=== PATIENT | female | born 2000 | race Hispanic/Latino ===

== ENCOUNTER 2020-10-01 11:15 | Emergency (ER) | payer BC, SELFPAY ==
[2020-10-01 11:24] VITALS: BP 110/61; PULSE 91; RESP 16; TEMP 36.1; O2SAT 100
--- NOTE | 2020-10-01 12:00 | ED.URI ---
HPI - URI/Sore Throat General Chief Complaint: Upper Respiratory Infection Stated Complaint: sore throat Time Seen by Provider: 10/01/20 11:35 Source: patient, RN notes reviewed and old records reviewed Mode of arrival: ambulatory Limitations: no limitations History of Present Illness HPI Narrative: 20 year old female who presents to [facility] with complaints of 2 day history of sore throat with pain increased with swallowing. Patient denies any known fevers, chills or sweats, states no sinus congestion or drainage, denies any cough or ear pain. Patient denies any shortness of breath or any wheezing, no tachypnea or accessory muscle use noted, SAO2 100% on room air. Patient states that her daughter has been ill also.Patient states that she has been using chloroseptic spray to her throat for the pain which she states is sharp and throbbing rates it a 10/10. MD elicited complaint: sore throat Onset (ago): day(s) (2) Consistency: progressively worsening Severity: severe Pain scale (0-10): 10 Able to tolerate fluids by mouth: Yes Exacerbating factors: swallowing Relieving factors: nothing Context: sick contacts (daughter) Treatments prior to arrival: other (chloroseptic throat spray) Related Data Allergies Allergy/AdvReac Type Severity Reaction Status Date / Time amoxicillin Allergy Unknown Rash Verified 10/01/20 11:48 Review of Systems Review of Systems: Narrative: CONSTITUTIONAL: Denies fever, chills, or sweats. EYES: Denies visual changes, redness, or discharge. ENT: Denies rhinorrhea, congestion, positive sore throat, no otalgia. CARDIOVASCULAR: Denies chest pain, palpitations, or edema. RESPIRATORY: Denies cough or dyspnea. GASTROINTESTINAL: Denies abdominal pain, nausea, vomiting, or diarrhea. GENITOURINARY: Denies dysuria or hematuria. SKIN: Denies rash or itching. MUSCULOSKELETAL: Denies back pain, joint pain, or myalgia. NEUROLOGIC: Denies headache, numbness, or weakness. PSYCHIATRIC: Denies anxiety or depression. All systems reviewed & are unremarkable except as noted in HPI and below PMFSH Past Medical History Medical History (Updated 10/01/20 @ 15:07 by Sharon Qureshi NP) Anxiety and depression UTI (urinary tract infection) Surgical History Surgical History (Updated 10/01/20 @ 15:01 by Sharon Qureshi NP) S/P foot surgery, left calcaneal spur Family History Family History (Updated 10/01/20 @ 15:02 by Sharon Qureshi NP) Father Hypertension Elevated cholesterol Social History Social History (Updated 10/01/20 @ 15:05 by Sharon Qureshi NP) Smoking status: Never smoker Alcohol intake: never Substance use: former Substance use type: marijuana Last use: before with daughter Living arrangements: with family Gender identity (if verbalized by the patient): Female Comments At time of signature, agree with nursing past medical, surgical, social and family history. There is no relevant family history pertinent to the presenting complaint Exam Narrative: Exam Narrative: GENERAL: Well-appearing, well-nourished, and in no acute distress. HEAD: Normocephalic, atraumatic. EYES: PERRLA and EOMI. ENT: Nares clear, no rhinorrhea or epistaxis. Mucous membranes moist.TM's normal with good light reflex, throat red with tonsils enlarged and red with painful swallowing verbalized, no lesions or exudates noted, uvula swollen red but midline.no trismus noted NECK: Supple.lymphadenopathy CHEST: Clear to auscultation. No respiratory distress.SAO2 100% on room air HEART: Regular rate and rhythm. No murmur heard. Normal peripheral pulses. ABDOMEN: Soft, nontender, nondistended, normal active bowel sounds. EXTREMITIES: Normal range of motion. No edema. SKIN: Warm, dry, no rash. NEURO: No focal deficits. Alert and oriented x3. Course Vital Signs Vital signs: Vital Signs Temperature 36.1 C L 10/01/20 11:24 Pulse Rate 91 10/01/20 11:24 Respiratory Rate 16 10/01/20 11:24 B
== END 2020-10-01 12:32 | disposition home or self-care (01) ==
PROVIDERS: Emergency Provider Registered Nurse
DX: J02.0 Streptococcal pharyngitis (principal)
CPT/HCPCS: 87880; 99213; G0463

== ENCOUNTER → 2021-03-31 13:50 | Outpatient (CLI) | payer BC, SELFPAY ==
--- NOTE | ~2021-03-31 | US_ITS ---
EXAMINATION: US transvaginal DATE: 03/31/2021 14:16 INDICATION: Pelvic pain and abnormal uterine bleeding TECHNIQUE: Multiple transabdominal and endovaginal sonographic images of the pelvis were obtained. COMPARISON: None. FINDINGS: The uterus measures 7.3 x 2.6 x 3.8 cm. The endometrial complex measures 3 mm in thickness. Linear e chogenic and shadowing IUD in expected position within the endometrial canal. The right ovary measure s 2.0 x 1.3 x 1.4 cm. The left ovary measures 1.3 x 1.1 x 1.5 cm. Vascular flow identified within bot h ovaries on color Doppler. There is no free fluid in the pelvis. IMPRESSION: 1. IUD in expected position within the endometrial canal. Otherwise normal pelvic ultrasound. Reviewed, dictated and finalized at location A. [employer] COMMUNICATIONS [employer] SIGNALS IMPRESSION: 1. IUD in expected position within the endometrial canal. Otherwise normal pelv ic ultrasound.
== END ==
PROVIDERS: Visit Provider Nurse Practitioner
DX: N93.8 Other specified abnormal uterine and vaginal bleeding (principal); R10.2 Pelvic and perineal pain; Z97.5 Presence of (intrauterine) contraceptive device
CPT/HCPCS: 76830

== ENCOUNTER 2022-12-21 15:26 | Outpatient (CLI) | payer BC, SELFPAY ==
--- NOTE | ~2022-12-21 | US_ITS ---
Pelvic ultrasound. Clinical History: Excessive bleeding Technique: Realtime transabdominal and transvaginal scanning of the pelvis was performed. Color flow Doppler and Doppler spectral analysis were performed. Findings: The uterus is anteverted. The endometrial stripe has a thickness of 8 mm. Small amount of fluid present in the endometrial cavity.. The right ovary measures 2.7 x 1.3 x 1.9 cm. No significant right ovarian or adnexal mass is seen. The left ovary measures 2.0 x 1.2 x 1.9 cm. No significant left ovarian or adnexal mass is seen. There is no evidence of free fluid in the cul de sac. Impression: Small amount of fluid present in the endometrial cavity, nonspecific. No other significant findings. Reviewed, dictated and finalized at location . Impression: Small amount of fluid present in the endometrial cavity, nonspecific. No other significant findings.
== END 2022-12-21 15:27 ==
LOC: MICIMG 15:29
PROVIDERS: PCP Obstetrics & Gynecology Gynecology; Visit Provider Obstetrics & Gynecology Gynecology
DX: N92.0 Excessive and frequent menstruation with regular cycle (principal)
CPT/HCPCS: 76830

== ENCOUNTER 2023-01-21 01:22 | Emergency (ER) | payer BC, SELFPAY ==
--- NOTE | ~2023-01-21 | XR_ITS ---
Portable chest x-ray Comparison: None Clinical History: Palpitations Findings: Lungs are clear, without focal consolidation or pleural effusion. Cardiomediastinal silho uette is unremarkable. Bones and soft tissues are unremarkable. Impression: Clear lungs. Reviewed, dictated and finalized at location M. Impression: Clear lungs.
[2023-01-21 01:25] VITALS: BP 129/75; PULSE 90; RESP 20; TEMP 36.9; O2SAT 99
[2023-01-21] MEDS: LORazepam (*CRX) 0.5 MG TABLET PO (04:17)
[2023-01-21 04:24] VITALS: BP 128/48; PULSE 82; RESP 16; O2SAT 98
--- NOTE | 2023-01-21 04:26 | ED.GENADULT ---
HPI - General Adult General Chief complaint: Shortness of Breath/Dyspnea Stated complaint: shortnes of breath Time Seen by Provider: 01/21/23 03:13 History of Present Illness HPI narrative: This is a 22-year-old female presenting ED with chief complaint of palpitations X5 months. Patient noticed at 12:00 p.m. today she started to have palpitations and sensation of her heart racing. Is associated with anxiety. It then resolved but while she was trying to sleep they resumed. Patient says this is what her typical anxiety feels like although this is worse than usual. Patient notes that she has panic disorder and anxiety. She says this is her typical panic attack. At this time she is asymptomatic. Related Data Allergies Allergy/AdvReac Type Severity Reaction Status Date / Time amoxicillin Allergy Unknown Rash Verified 10/01/20 11:48 [facility] Past Medical History Medical History Anxiety and depression UTI (urinary tract infection) Surgical History Surgical History S/P foot surgery, left calcaneal spur Family History Family History Father Hypertension Elevated cholesterol Social History Social History Smoking status: Never smoker Alcohol intake: never Substance use: former Substance use type: marijuana Last use: before with daughter Living arrangements: with family Gender identity (if verbalized by the patient): Female Exam Narrative: APPEARANCE: No apparent distress. Head: atraumatic. EYES: EOMI, NOSE: Atraumatic NECK: Trachea midline RESPIRATORY: No increased rate of breathing Clear to auscultation CARDIOVASCULAR: RRR, no peripheral edema ABDOMINAL: Non-distended MUSCULOSKELETAl: No obvious deformities NEURO: Alert. Moving 4/4 extremities SKIN:: Warm, dry. Normal color PSYCHIATRIC: Normal affect Course Vital Signs Vital signs: Vital Signs Temperature 98.5 F 01/21/23 01:25 Pulse Rate 90 01/21/23 01:25 Respiratory Rate 20 01/21/23 01:25 Blood Pressure 129/75 01/21/23 01:25 Pulse Oximetry 99 01/21/23 01:25 Oxygen Delivery Room Air 01/21/23 01:25 Temperature 98.5 F 01/21/23 01:25 Pulse Rate 82 01/21/23 04:24 Respiratory Rate 16 01/21/23 04:24 Blood Pressure 128/48 L 01/21/23 04:24 Pulse Oximetry 98 01/21/23 04:24 Oxygen Delivery Room Air 01/21/23 01:25 Medical Decision Making MDM Narrative Medical decision making narrative: -Course: 22-year-old female presenting with palpitations. Patient states this is her typical anxiety attack. Chest x-ray and EKG were unremarkable. Patient was given p.o. Ativan and discharged. given return precautions. 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 Independent EKG interpretation: Rhythm [sinus], Rate [72], [place] -[normal], DE -[normal], QRS [narrow], QTC [normal], T waves -[negative for concerning inversions], ST Segments - [Negative for concerning elevations] Final interpretations: [Normal Sinus Rhythm] -Dx tests considered but not ordered: PE studies-PERC negative -Interventions: 0.5 p.o. Ativan -Shared decision making / Disposition: discharge Vital Signs Vital Signs: Vital Signs Temperature 98.5 F 01/21/23 01:25 Pulse Rate 90 01/21/23 01:25 Respiratory Rate 20 01/21/23 01:25 Blood Pressure 129/75 01/21/23 01:25 Pulse Oximetry 99 01/21/23 01:25 Oxygen Delivery Room Air 01/21/23 01:25 Temperature 98.5 F 01/21/23 01:25 Pulse Rate 82 01/21/23 04:24 Respiratory Rate 16
[2023-01-21 04:40] VITALS: BP 126/56; PULSE 84; RESP 15; O2SAT 100
== END 2023-01-21 04:40 | disposition home or self-care (01) ==
PROVIDERS: Emergency Provider Emergency Medicine; PCP Physician Assistant
DX: F41.9 Anxiety disorder, unspecified (principal)
CPT/HCPCS: 71045; 93005; 99283; A9270; L0140

== ENCOUNTER → 2023-06-23 15:47 | Outpatient (CLI) | payer BC, SELFPAY ==
--- NOTE | ~2023-06-23 | US_ITS ---
EXAMINATION: US OB transvaginal DATE: 06/23/2023 16:17 INDICATION: Spotting in first trimester. TECHNIQUE: Real-time transvaginal pelvic ultrasound was performed. COMPARISON: None. FINDINGS: The uterus measures 9.6 x 4.5 x 5.6 cm. There is an intrauterine gestational sac. A yolk sac is ident ified. The crown rump length measures 4 mm, which correlates with an estimated gestational age of 6 weeks and 1 day(s) (+/-) 4 day(s). heart motion is identified measuring 115 beats per min brittney (bpm) by M-mode Doppler. The right ovary measures 1.4 x 1.4 x 2.3 cm. The left ovary is not visua lized. There is no free fluid in the pelvis. IMPRESSION: 1. Single living intrauterine gestation with estimated date of delivery of 02/15/2024. Reviewed, dictated and finalized at location E. [employer]
== END ==
PROVIDERS: PCP Obstetrics & Gynecology Gynecology; Visit Provider Obstetrics & Gynecology Gynecology
DX: O26.851 Spotting complicating pregnancy, first trimester (principal); Z3A.00 Weeks of gestation of pregnancy not specified
CPT/HCPCS: 76801; 76817

== ENCOUNTER → 2023-06-30 14:51 | Outpatient (CLI) | payer BC, SELFPAY ==
--- NOTE | ~2023-06-30 | US_ITS ---
EXAMINATION: US OB limited DATE: 06/30/2023 15:14 INDICATION: Spotting during first trimester . Confirm viability. TECHNIQUE: Real-time pelvic ultrasound utilizing transabdominal probe was performed. The kika torres radiologist was not present for the study. COMPARISON: 06/23/2023 FINDINGS: The uterus measures 8.7 x 5.1 x 6.0 cm. There is an intrauterine gestational sac. A yolk sac and fet al pole are identified. The crown rump length measures 1.0 cm, which is concordant with previously es timated gestational age of 7 weeks and 1 days. heart motion is identified measuring 146 beats p er minute (bpm) by M-mode Doppler. The ovaries are not visualized. There is no free fluid in the pelv is. IMPRESSION: 1. Single living fetus with heart rate of 146 bpm. Reviewed, dictated and finalized at location A. 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
== END ==
PROVIDERS: PCP Advanced Practice Midwife; Visit Provider Advanced Practice Midwife
DX: O26.851 Spotting complicating pregnancy, first trimester (principal); O36.80X0 Pregnancy with inconclusive fetal viability, not applicable or unspecified
CPT/HCPCS: 76815

== ENCOUNTER 2023-12-10 05:38 | Observation (INO) | payer BC, SELFPAY ==
[2023-12-10] VITALS (7 sets, daily range): BP systolic 115–129; BP diastolic 60–74; PULSE 79–92; TEMP 36.8; BMI 46.6
[2023-12-10 06:28] LABS: Appearance Urine Clear (Clear); Bilirubin Urine Negative (Negative); Blood Urine Negative (Negative); Color Urine Yellow (Yellow); Glucose Urine UA Negative (Negative); Ketones Urine Negative (Negative); Leukocyte Esterase Ur Negative LEU/UL (Negative); Nitrate Urine Negative (Negative); Protein Urine Negative (Negative); Specific Grav Ur 1.015 (1.001-1.035); Urobilinogen Urine 0.2 mg/dL (<2.0); pH Urine 5.5 (5.0-9.0)
[2023-12-10 06:44] LABS: Basophils Percent Auto 0.3 % (0.2-1.2); Eosinophils Absolute Auto 0.4 K/mm3 (0-0.3); Eosinophils Percent Auto 3.6 % (0-4.4); Hematocrit 34.5 % (37.0-47.0); Hemoglobin 11.2 g/dL (12.0-15.0); Immature Granulocyte Percent A 0.9 % (0-0.5); Lymphocytes Absolute Auto 1.73 K/mm3 (0.9-3.2); Lymphocytes Percent Auto 15.8 % (18.3-44.2); Mean Corpuscular HGB Conc 32.5 g/dl (32-36); Mean Corpuscular Hemoglobin 29.7 pg (26-34); Mean Corpuscular Volume 91.5 fl (80-100); Mean Platelet Volume 9.1 fl (7.4-10.4); Monocytes Absolute Auto 0.7 K/mm3 (0.1-0.6); Monocytes Percent Auto 6.1 % (2.6-8.5); Neutrophils Percent Auto 73.3 % (45.5-73.1); Platelet Count Result 245 k/mm3 (150-375); Red Blood Count 3.77 M/mm3 (4.2-5.4); Red Cell Distribution Width 13.3 % (11.5-14.5); White Blood Count 10.9 K/mm3 (4.5-10.0)
[2023-12-10 06:44] LABS: Add Urine Microscopic? NO
--- NOTE | 2023-12-10 06:44 | OBADM ---
This patient, Jade Cardenas, admitted to the OB room [facility] for observation. Patient/family oriented to hospital policies and general routines including ID bracelet, bed and alarms, visiting hours, pain management, procedures, bathroom and other care routines, personal items, smoking policy, room service/diet, and visiting hours. Patient/Family are encouraged to report perceived risks to care and to ask questions if they do not understand what they are told or what they should do.
[2023-12-10 06:58] LABS: Alanine Aminotransferase 13 U/L (6-35); Albumin Level 3.5 g/dL (3.5-5.1); Alkaline Phosphatase 96 U/L (38-126); Anion Gap 9 mmol/L (4-12); Aspartate Amino Transferase 18 U/L (14-36); Bilirubin,Total 0.3 mg/dL (0.2-1.3); Blood Urea Nitrogen 6 mg/dL (7-17); Calcium 8.7 mg/dL (8.4-10.2); Carbon Dioxide 20 mmol/L (22-30); Chloride 103 mmol/L (98-107); Estimated CRCL calculation 238 ml/min; Estimated Glomerular Filt Rate > 60; Glucose 116 mg/dL (65-110); Potassium 3.5 mmol/L (3.4-5.0); Sodium 132 mmol/L (137-145); Uric Acid 2.4 mg/dL (2.5-7.5)
[2023-12-10 07:00] LABS: Creatinine Urine 72.9 mg/dL; Total Protein Urine Random 11 mg/dL; Ur Ttl Prot Creatinine Ratio 0.15 mg/mg (0-0.20)
--- NOTE | 2023-12-13 12:34 | P.PNOB_ITS ---
OB - Triage/Final Diagnosis Visit Information Comments/Additional reasons for admission: I have assessed the risk for this patient, Jade Cardenas, and determined that she would benefit from observation care. Evaluation Laboratory results: Laboratory Tests 12/10/23 12/10/23 06:05 06:30 WBC 10.9 H RBC 3.77 L Hgb 11.2 L Hct 34.5 L MCV 91.5 MCH 29.7 MCHC 32.5 RDW 13.3 Plt Count 245 MPV 9.1 Immature Gran % (Auto) 0.9 H Neut % (Auto) 73.3 H Lymph % (Auto) 15.8 L [place] % (Auto) 6.1 Eos % (Auto) 3.6 Baso % (Auto) 0.3 Lymph # (Auto) 1.73 [place] # (Auto) 0.7 H Eos # (Auto) 0.4 H Baso # (Auto) 0.0 Abs Immat Gran (auto) 0.10 H Absolute Neuts (auto) 8.0 H Absolute Nucleated RBC 0.000 Nucleated RBC % 0.0 Sodium 132 L Potassium 3.5 Chloride 103 Carbon Dioxide 20 L Anion Gap 9 BUN 6 L Creatinine 0.40 L Estim Creat Clear Calc 238 Estimated GFR > 60 Glucose 116 H Uric Acid 2.4 L Calcium 8.7 Total Bilirubin 0.3 AST 18 ALT 13 Alkaline Phosphatase 96 Total Protein 6.0 L Albumin 3.5 Urine Color Yellow Urine Appearance Clear Urine pH 5.5 Ur Specific [place] 1.015 Urine Protein Negative Urine Glucose (UA) Negative Urine Ketones Negative Ur Blood (Man) Negative Urine Nitrate Negative Urine Bilirubin Negative Urine Urobilinogen 0.2 Leukocyte Esterase Rfl Negative U Random Total Protein 11 Urine Creatinine 72.9 Protein/Creat Ratio 2 0.15 Final Diagnosis (1) False labor: Code(s): O47.9 - False labor, unspecified Status: Acute
== END 2023-12-10 07:42 | disposition home or self-care (01) ==
PROVIDERS: Admitting Provider Obstetrics & Gynecology Gynecology; PCP Advanced Practice Midwife; Visit Provider Obstetrics & Gynecology
DX: O47.03 False labor before 37 completed weeks of gestation, third trimester (principal); Z3A.30 30 weeks gestation of pregnancy
CPT/HCPCS: 36415; 80053; 81003; 82570; 84156; 84550; 85025; G0378; G0379

== ENCOUNTER 2024-01-26 18:38 | Outpatient (NON) | payer BC, SELFPAY ==
[2024-01-26 19:11] VITALS: BMI 49.5
[2024-01-26 20:19] LABS: Collection Time Urine 24 HOURS
[2024-01-26 20:23] LABS: Total Volume 24 Hour Urine 1450 ml
[2024-01-26 20:51] LABS: Creatinine Clearance Urine 133.4 ml/min (75-125); Creatinine Urine 89.3 mg/dL; Patient Weight 297 Lbs
[2024-01-26 20:58] LABS: Total Protein Urine 24 Hr 72 mg/24hr (28-141); Total Protein Urine Random < 5 mg/dL
== END 2024-01-26 18:39 | disposition home or self-care (01) ==
LOC: ANHLAB 18:57
PROVIDERS: PCP Advanced Practice Midwife; Visit Provider Advanced Practice Midwife
DX: R73.9 Hyperglycemia, unspecified (principal)
CPT/HCPCS: 81050; 82575; 84156

== ENCOUNTER 2024-02-07 08:31 | Outpatient (RCR) | payer BC, SELFPAY ==
[2023-12-21 14:55] VITALS: BP 108/61; PULSE 99
[2023-12-26 13:40] VITALS: BP 108/61; PULSE 107
[2023-12-28 18:18] VITALS: BP 117/59; PULSE 90
[2024-01-01 14:30] VITALS: BP 109/62; PULSE 90
[2024-01-04 17:38] VITALS: BP 114/69; PULSE 94
[2024-01-08 13:48] VITALS: BP 125/69; PULSE 97
[2024-01-11 17:45] VITALS: BP 122/55; PULSE 95
[2024-01-15 13:52] VITALS: BP 109/64; PULSE 98
[2024-01-18 17:04] VITALS: BP 124/56; PULSE 89
[2024-01-21 14:31] VITALS: BP 104/59; PULSE 85
[2024-01-25 18:01] LABS: Basophils Percent Auto 0.4 % (0.2-1.2); Eosinophils Absolute Auto 0.4 K/mm3 (0-0.3); Eosinophils Percent Auto 3.3 % (0-4.4); Hematocrit 33.9 % (37.0-47.0); Hemoglobin 10.6 g/dL (12.0-15.0); Immature Granulocyte Absolute 0.13 K/mm3 (0.00-0.031); Immature Granulocyte Percent A 1.2 % (0-0.5); Lymphocytes Absolute Auto 1.97 K/mm3 (0.9-3.2); Lymphocytes Percent Auto 17.9 % (18.3-44.2); Mean Corpuscular HGB Conc 31.3 g/dl (32-36); Mean Corpuscular Volume 92.9 fl (80-100); Mean Platelet Volume 9.5 fl (7.4-10.4); Monocytes Absolute Auto 0.9 K/mm3 (0.1-0.6); Monocytes Percent Auto 8.5 % (2.6-8.5); Neutrophils Absolute Auto 7.6 K/mm3 (1.3-6.7); Neutrophils Percent Auto 68.7 % (45.5-73.1); Platelet Count Result 250 k/mm3 (150-375); Red Blood Count 3.65 M/mm3 (4.2-5.4); Red Cell Distribution Width 13.9 % (11.5-14.5)
[2024-01-25 18:05] LABS: Add Urine Microscopic? NO; Appearance Urine Clear (Clear); Bilirubin Urine Negative (Negative); Blood Urine Negative (Negative); Color Urine Yellow (Yellow); Glucose Urine UA Trace mg/dL (Negative); Ketones Urine Negative (Negative); Leukocyte Esterase Ur Negative LEU/UL (Negative); Nitrate Urine Negative (Negative); Protein Urine Negative (Negative); Specific Grav Ur 1.023 (1.001-1.035); Urobilinogen Urine 0.2 mg/dL (<2.0)
[2024-01-25 18:06] LABS: Alanine Aminotransferase 14 U/L (6-35); Albumin Level 3.2 g/dL (3.5-5.1); Alkaline Phosphatase 120 U/L (38-126); Anion Gap 6 mmol/L (4-12); Aspartate Amino Transferase 21 U/L (14-36); Bilirubin,Total 0.3 mg/dL (0.2-1.3); Blood Urea Nitrogen 9 mg/dL (7-17); Calcium 8.5 mg/dL (8.4-10.2); Carbon Dioxide 24 mmol/L (22-30); Chloride 102 mmol/L (98-107); Estimated Glomerular Filt Rate > 60; Glucose 103 mg/dL (65-110); Potassium 3.7 mmol/L (3.4-5.0); Sodium 132 mmol/L (137-145); Uric Acid 2.2 mg/dL (2.5-7.5)
[2024-01-25 18:10] VITALS: BP 112/56; PULSE 92
[2024-01-25 19:45] LABS: Creatinine Urine 95.2 mg/dL
[2024-01-25 19:57] LABS: Total Protein Urine Random < 5 mg/dL; Ur Ttl Prot Creatinine Ratio < 0.05 mg/mg (0-0.20)
[2024-02-02 18:26] VITALS: BP 112/56; PULSE 92
[2024-02-07 09:26] VITALS: BP 99/61; PULSE 91
== END 2024-03-20 23:59 | disposition home or self-care (01) ==
LOC: ANHOBOP 08:31
PROVIDERS: PCP Advanced Practice Midwife; Visit Provider Obstetrics & Gynecology Gynecology
DX: O36.8190 Decreased fetal movements, unspecified trimester, not applicable or unspecified (principal); O24.419 Gestational diabetes mellitus in pregnancy, unspecified control
CPT/HCPCS: 36415; 59025; 80053; 81003; 82570; 84156; 84550; 85025

== ENCOUNTER 2024-02-14 05:02 | Inpatient (IN) | payer BC, SELFPAY ==
[2024-02-14] VITALS (134 sets, daily range): BP systolic 89–166; BP diastolic 39–121; PULSE 70–150; RESP 18; TEMP 36.6–37.2; O2SAT 84–100; BMI 47.4
--- NOTE | 2024-02-14 05:30 | PC.NURSE ---
Clarification of written vancomycin on IOL orders. Vancomycin 1gm q12hrs ordered per GBS protocol orders.
[2024-02-14 05:48] LABS: Glucose Point of Care 162 mg/dl (65-105)
[2024-02-14 05:55] LABS: Basophils Percent Auto 0.3 % (0.2-1.2); Eosinophils Absolute Auto 0.4 K/mm3 (0-0.3); Eosinophils Percent Auto 3.2 % (0-4.4); Hematocrit 33.5 % (37.0-47.0); Hemoglobin 11.1 g/dL (12.0-15.0); Immature Granulocyte Percent A 0.8 % (0-0.5); Mean Corpuscular HGB Conc 33.1 g/dl (32-36); Mean Corpuscular Volume 90.5 fl (80-100); Mean Platelet Volume 9.8 fl (7.4-10.4); Monocytes Absolute Auto 0.8 K/mm3 (0.1-0.6); Monocytes Percent Auto 6.4 % (2.6-8.5); Neutrophils Absolute Auto 8.7 K/mm3 (1.3-6.7); Neutrophils Percent Auto 71.3 % (45.5-73.1); Platelet Count Result 260 k/mm3 (150-375); Red Cell Distribution Width 14.5 % (11.5-14.5); White Blood Count 12.2 K/mm3 (4.5-10.0)
[2024-02-14 06:21] LABS: Alanine Aminotransferase 17 U/L (6-35); Albumin Level 3.4 g/dL (3.5-5.1); Alkaline Phosphatase 151 U/L (38-126); Anion Gap 11 mmol/L (4-12); Aspartate Amino Transferase 26 U/L (14-36); Bilirubin,Total 0.4 mg/dL (0.2-1.3); Blood Urea Nitrogen 9 mg/dL (7-17); Calcium 8.6 mg/dL (8.4-10.2); Carbon Dioxide 18 mmol/L (22-30); Chloride 104 mmol/L (98-107); Estimated CRCL calculation 198 ml/min; Estimated Glomerular Filt Rate > 60; Glucose 166 mg/dL (65-110); Potassium 3.4 mmol/L (3.4-5.0); Sodium 133 mmol/L (137-145)
--- NOTE | 2024-02-14 06:32 | LDADM ---
This patient, Jade Cardenas, was admitted to Labor/Delivery/Recovery 105 on 02/14/24 at 05:02. Plans for labor, pain management and were discussed with patient. Patient/family oriented to hospital policies and general routines including ID bracelet, bed and alarms, visiting hours, pain management, procedures, bathroom and other care routines, personal items, smoking policy, room service/diet and guest tray routines, infant security routines, and visiting hours. Patient/Family are encouraged to report perceived risks to care and to ask questions if they do not understand what they are told or what they should do. See OBIX for further documentation.
[2024-02-14] MEDS: LACTATED RINGERS 1,000 ML 125 ML IV CONT ×2 (06:50→09:24)
[2024-02-14] MEDS: OXYTOCIN 30 UNITS/NS 500 ML 30 UNITS/500 ML BAG IV CONT (06:50)
[2024-02-14 06:56] LABS: HIV 1/2 Ab P24 Ag Result Negative (Negative)
[2024-02-14 06:57] LABS: Glucose Point of Care 164 mg/dl (65-105)
--- NOTE | 2024-02-14 07:36 | WPDOBADMIT ---
Obstetrics - Admit Note Admission Note: record reviewed. No pertinent additions to the history and/or any subsequent changes in the physical findings that are not consistent with the expected course of the were found. Additions to the history and/or subsequent changes in the physical findings follow. None.
--- NOTE | 2024-02-14 07:36 | PM.OBPNLAB ---
Pain Control Date/time seen: 02/14/24 07:25 Pain control: tolerating well Comments: Not feeling contractions at this time. Contractions Monitor mode: External Contraction pattern: Absent Status status: Category l Comments: Baseline 160. Assessment and Plan Assessment: induction ongoing Comments: CNM to bedside. Discussed lab results and am glucose. Pt states she forgot her PM insulin. Per RN, pt ate waffles, biscuits for breakfast at home. Discussed plan of care. Plan SVE and ROM if favorable. Discussed possibility of needing insulin drip for glucose control. Again reviewed risks to fetus for uncontrolled blood sugars including weight gain, shoulder dystocia, poor glycemic control and possibility of respiratory distress and possibility of requiring IV fluid and stay in Level 2 nursery. All questions answered. Desires to proceed with IOL.
--- NOTE | 2024-02-14 07:41 | PM.IMHP ---
H&P: HPI History of Present Illness Date/Time: 02/14/24 07:41 Chief Complaint: Induction of labor Narrative: 23 y.o at 39 weeks 6 days gestation IOL GDMA2 (hx non-compliance) Anxiety PCOS Pre-Diabetes Exercise induced asthma Nicotine use in gHTN COVID in GBS+ Review of Systems Review of Systems: All systems reviewed & are unremarkable except as noted in HPI and below PMFSH Past Medical History Medical History Anxiety and depression UTI (urinary tract infection) Surgical History Surgical History S/P foot surgery, left calcaneal spur Family History Family History Father Hypertension Elevated cholesterol Social History Social History Smoking status: Former smoker Alcohol intake: never Substance use: never Substance use type: marijuana Last use: before with daughter Do You Feel Safe in your Home?: Yes Lack of Transportation: No Lack of Food: Never True Current Housing: I Have Housing Concerned About Future Housing: No Difficulty Paying Gas/Electric Bills: No Difficulty Paying for Meds: No Currently Unemployed: No Education: High School Diploma/GED Difficulty w/ Childcare or Family Care: No Living arrangements: with family Gender identity (if verbalized by the patient): Female Spiritual care concerns: No Meds Home Medications and Allergies Home Medications Medication Instructions Recorded Confirmed Type ergocalciferol (vitamin D2) 1,250 50,000 unit PO WEEKLY 12/21/23 02/14/24 History mcg (50,000 unit) capsule insulin NPH isoph U-100 human 100 20 unit subcut HS 12/21/23 01/21/24 History unit/mL (3 mL) subcutaneous pen (Novolin N FlexPen) vit no.95-ferrous 1 tablet PO DAILY 12/21/23 01/21/24 History fumarate 28 mg-folic acid 800 mcg tablet () Allergies Allergy/AdvReac Type Severity Reaction Status Date / Time amoxicillin Allergy Unknown Rash Verified 01/21/24 13:33 Vital Signs Vital Signs - 24 hr 02/14/24 05:30 02/14/24 06:30 02/14/24 06:45 Pulse Rate 101 H 95 94 Blood Pressure 119/60 125/62 115/57 L Oxygen Delivery 02/14/24 07:00 02/14/24 07:30 02/14/24 06:31 Pulse Rate 92 91 Blood Pressure 108/65 96/75 L Oxygen Delivery Room Air Exam Const: General: comfortable and no acute distress HENMT: Mouth: Yes moist mucous membranes Eyes: General: appearance normal, both eyes and all related structures Neck: Neck: supple Resp: Effort & Inspection: normal respiratory effort Cardio: Rate: regular rate GI: GI Palp: Yes Soft to palpation : General: Yes bladder normal to palpation Urinary Catheter: Urinary Catheter: patent and draining Skin: General skin exam: normal color Neuro: General: gait normal Speech: normal speech Sensory Exam: normal sensation Extrem: General: normal to inspection Psych: Mental Status: mental status grossly normal H&P: Results Labs Labs: Short CBC 02/14/24 Range/Units 05:49 WBC 12.2 H (4.5-10.0) K/mm3 Hgb 11.1 L (12.0-15.0) g/dL Hct 33.5 L (37.0-47.0) % Plt Count 260 (150-375) k/mm3 BMP 02/14/24 05:49 Sodium 133 L Potassium 3.4 Chloride 104 Carbon Dioxide 18 L BUN 9 Creatinine 0.50 L Glucose 166 H Calcium 8.6 Liver Function 02/14/24 Range/Units 05:49 Total Bilirubin 0.4 (0.2-1.3) mg/dL AST 26 (14-36) U/L ALT 17 (6-35) U/L Alkaline Phosphatase 151 H (38-126) U/L Albumin 3.4 L (3.5-5.1) g/dL Assessment and Plan Assessment and plan (1) Encounter for induction of labor: Code(s): Z34.90 - Encounter for supervision of normal , unspecified, unspecified trimester Status: Acute (2) Gestational diabetes:
--- NOTE | 2024-02-14 08:03 | PM.OBPNLAB ---
Pain Control Date/time seen: 02/14/24 08:03 Pelvic Exam Dilation (cm): 4 Effacement (%): 50 station: -2 Amniotic membrane status: Intact Comments: head well applied. Contractions Monitor mode: External Contraction pattern: Irregular Status status: Category l Assessment and Plan Pitocin rate (mU/min): 1 Assessment: induction ongoing Comments: CNM to bedside. Discussed plan of care and option for amniotomy. Discussed risks, benefits, and expectations of breaking water. Patient is agreeable. Amniotomy performed and there was a small return of clear amniotic fluid. Patient tolerated procedure well. Blood sugar 144. Plan 4 units regular insulin and recheck one hour. If > 120, will start insulin drip.
[2024-02-14 08:11] LABS: Rapid Plasma Reagin Non-Reactive (NonReactive)
[2024-02-14] MEDS: ceFAZolin 2 GM/D5W 50 ML 2 GM/50 ML BAG IVPB (08:11)
[2024-02-14 08:19] LABS: Glucose Point of Care 144 mg/dl (65-105)
--- NOTE | 2024-02-14 08:19 | WPDANESEPP ---
Anes - Eval Pre Procedure Procedure: Labor epidural Date/Time: 02/14/24 08:19 Surgeon: Aung Preop Diagnosis: Pain during labot Pre Op Diagnosis: IOL Patient Data Age: 23 Gender: F Height: 1.65 m Weight: 129.3 kg Last Vital Signs Pulse 91 02/14/24 07:30 BP 96/75 L 02/14/24 07:30 O2 Del Method Room Air 02/14/24 06:31 Allergies Allergy/AdvReac Type Severity Reaction Status Date / Time amoxicillin Allergy Unknown Rash Verified 01/21/24 13:33 Home Medications Medication Instructions Recorded Confirmed Type ergocalciferol (vitamin D2) 1,250 50,000 unit PO WEEKLY 12/21/23 02/14/24 History mcg (50,000 unit) capsule insulin NPH isoph U-100 human 100 20 unit subcut HS 12/21/23 01/21/24 History unit/mL (3 mL) subcutaneous pen (Novolin N FlexPen) vit no.95-ferrous 1 tablet PO DAILY 12/21/23 01/21/24 History fumarate 28 mg-folic acid 800 mcg tablet () Laboratory Tests 02/14/24 02/14/24 02/14/24 05:44 05:48 05:49 WBC 12.2 H K/mm3 (4.5-10.0) RBC 3.70 L M/mm3 (4.2-5.4) Hgb 11.1 L g/dL (12.0-15.0) Hct 33.5 L % (37.0-47.0) MCV 90.5 fl (80-100) MCH 30.0 pg (26-34) MCHC 33.1 g/dl (32-36) RDW 14.5 % (11.5-14.5) Plt Count 260 k/mm3 (150-375) MPV 9.8 fl (7.4-10.4) Immature Gran % (Auto) 0.8 H % (0-0.5) Neut % (Auto) 71.3 % (45.5-73.1) Lymph % (Auto) 18.0 L % (18.3-44.2) [place] % (Auto) 6.4 % (2.6-8.5) Eos % (Auto) 3.2 % (0-4.4) Baso % (Auto) 0.3 % (0.2-1.2) Lymph # (Auto) 2.20 K/mm3 (0.9-3.2) [place] # (Auto) 0.8 H K/mm3 (0.1-0.6) Eos # (Auto) 0.4 H K/mm3 (0-0.3) Baso # (Auto) 0.0 K/mm3 (0.0-0.1) Abs Immat Gran (auto) 0.10 H K/mm3 (0.00-0.031) Absolute Neuts (auto) 8.7 H K/mm3 (1.3-6.7) Absolute Nucleated RBC 0.000 K/mm3 (0.0-0.012) Nucleated RBC % 0.0 % (0.0-0.2) Sodium 133 L mmol/L (137-145) Potassium 3.4 mmol/L (3.4-5.0) Chloride 104 mmol/L (98-107) Carbon Dioxide 18 L mmol/L (22-30) Anion Gap 11 mmol/L (4-12) BUN 9 mg/dL (7-17) Creatinine 0.50 L mg/dL (0.7-1.0) Estim Creat Clear Calc 198 ml/min Estimated GFR > 60 (59 - ) Glucose 166 H mg/dL (65-110) POC Capillary Glucose 162 H mg/dl (65-105) Calcium 8.6 mg/dL (8.4-10.2) Total Bilirubin 0.4 mg/dL (0.2-1.3) AST 26 U/L (14-36) ALT 17 U/L (6-35) Alkaline Phosphatase 151 H U/L (38-126) Total Protein 6.0 L g/dL (6.3-8.2) Albumin 3.4 L g/dL (3.5-5.1) RPR Non-reactive (NonReactive) HIV 1&2 Ab/P24 Ag 4thGn Negative (Negative) Blood Type O Positive Antibody Screen Negative 02/14/24 02/14/24 06:54 08:01 WBC RBC Hgb Hct MCV MCH MCHC RDW Plt Count MPV Immature Gran % (Auto) Neut % (Auto) Lymph % (Auto) [place] % (Auto) Eos % (Auto) Baso % (Auto) Lymph # (Auto) [place] # (Auto) Eos # (Auto) Baso # (Auto) Abs Immat Gran (auto) Absolute Neuts (auto) Absolute Nucleated RBC Nucleated RBC % Sodium Potassium Chloride Carbon Dioxide Anion Gap BUN Creatinine Estim Creat Clear Calc Estimated GFR Glucose POC Capillary Glucose 164 H mg/dl 144 H mg/dl (65-105) (65-105) Calcium Total Bilirubin AST ALT Alkaline Phosphatase Tot
[2024-02-14] MEDS: INSULIN HUMAN REGULAR (*BKC) 100 UNITS/ML SUB-Q (08:28)
[2024-02-14 09:31] LABS: Glucose Point of Care 98 mg/dl (65-105)
[2024-02-14 10:41] LABS: Glucose Point of Care 91 mg/dl (65-105)
[2024-02-14 11:40] LABS: Glucose Point of Care 76 mg/dl (65-105)
--- NOTE | 2024-02-14 13:15 | PM.OBPNLAB ---
Pain Control Date/time seen: 02/14/24 1125 Pelvic Exam Comments: Recent RN exam 5 cm. Contractions Monitor mode: Internal Assessment and Plan Assessment: active labor Plan: continuous present management Comments: MVUs adequate and tracing reassuring per RN. Pt making cervical change. Blood sugars WNL. Pitocin infusing. Ancef for GBS prophylaxis. Continue present management. Anticipate vaginal . Dr. Horan updated.
[2024-02-14 14:38] LABS: Glucose Point of Care 92 mg/dl (65-105)
--- NOTE | 2024-02-14 15:14 | PM.OBPRVD ---
OB - Vaginal Delivery Note Procedure Delivery date: 02/14/24 Events: Gestational Diabetes (GDMA2), Gestational Hypertension and Other (COVID infection in ) Induction method: Per Pitocin Protocol Delivery augmentation: Rupture of Membranes Delivery monitor: External FHT and Internal Uterine Route of delivery: Episiotomy description: None Laceration Description: Periurethral (superficial) Specimen: No Quantitative Blood Loss (ml): 75 Anesthesia type: Epidural Disposition: Floor Complications: No immediate complications Narrative: Jade arrived for induction of labor due to gestational diabetes. Her induction was began with Pitocin an amniotomy was performed. She made change to complete dilation. She did receive an epidural for analgesia. She pushed very well with 1 contraction and delivered the head over an intact perineum. Excellent restitution was observed and smooth delivery of the anterior and posterior shoulders followed by the remainder of the was achieved. The infant was placed on maternal abdomen dried and stimulated by the nursery staff. After 1 minute of life, the cord was doubly clamped and cut. Cord gases, cord blood, and cord segment were obtained. The placenta delivered spontaneously in the Schultze presentation. A superficial periurethral laceration was sustained no repair required. There was excellent uterine tone and hemostasis. All delivery counts correct. Mother and baby skin to skin in the delivery room. Baby Date of : 02/14/24 Time of : 15:01 Gestational Age by Date: 39 Infant gender: Male Weight (pounds): 0 (unavailable at the time of note) presentation: vertex position: Left Occiput Anterior Placenta delivery description: Spontaneous and Normal Configuration Cord Vessel Description: 3 Vessels and Delayed Cord Clamping score one minute: 8 score five minutes: 9
--- NOTE | 2024-02-14 15:20 | PM.OBDSVD ---
DS: Admitting Diagnosis Discharge Date 02/15/24 Admitting Diagnosis 23 y.o. at 39 weeks IOL GDMA2 GHTN COVID infection in Nicotine use in [place] Marijuana use in DS: Discharge Diagnosis Discharge Diagnosis (1) (normal spontaneous vaginal delivery): Code(s): O80 - Encounter for full-term uncomplicated delivery Status: Acute (2) Gestational diabetes: Qualifiers: Gestational diabetes mellitus control: insulin-controlled Trimester: third trimester Qualified Code(s): O24.414 - Gestational diabetes mellitus in , insulin controlled Code(s): O24.419 - Gestational diabetes mellitus in , unspecified control Status: Acute Assessment and Plan: Accucheck this am non-fasting per pt report. (3) Gestational hypertension: Qualifiers: Trimester: third trimester Qualified Code(s): O13.3 - Gestational [-induced] hypertension without significant proteinuria, third trimester Code(s): O13.9 - Gestational [-induced] hypertension without significant proteinuria, unspecified trimester Status: Acute Assessment and Plan: All BPs WNL (4) Nicotine use: Code(s): Z72.0 - Tobacco use Status: Acute (5) Intends to breastfeed: Status: Acute Assessment and Plan: consultation ordered. OB - DS: Summary Hospital Course Hospital Course: Uncomplicated OB Procedures : NST and Ultrasound OB Procedures Intrapartum: Spontaneous Vag Delivery and GBS prophylaxis OB Procedures: : None Peripartum Data Infant Delivery Method: Natural Vaginal Laceration Description: Periurethral (superficial) Episiotomy description: None complications: none Status at Discharge Functional status at discharge: independent ambulation Time Spent with Patient Time attestation: Total time spent providing and/or coordinating discharge services: Exam Narrative: Alert and oriented. Mood is pleasant and cooperative. Perineum with minimal edema. Fundus firm and below umbilicus. Const: General: cooperative, healthy appearing, no acute distress and alert Orientation/consciousness: patient oriented x3 Limitations: no limitations Resp: Effort & Inspection: normal respiratory effort and able to speak in complete sentences Cardio: Rate: regular rate GI: Inspection: normal to inspection GI Palp: Yes Soft to palpation : General: Yes bladder normal to palpation External Female Exam: other (lochia WNL) Bimanual exam- vagina & uterus: bladder normal to palpation Other: Fundus firm and below U Skin: General skin exam: normal color and no rashes or lesions noted Neuro: General: patient oriented x3 and moves all extremities Cognition (Neuro): normal cognition Speech: normal speech Sensory Exam: normal sensation Extrem: General: normal to inspection and no calf tenderness Psych: Appearance: grossly normal Mental Status: mental status grossly normal Affect: normal affect Thought process: Normal thought process present DS: Data Data Completed and Pending Labs on day of discharge: Labs from last 24 hours 02/14/24 02/14/24 02/14/24 14:33 11:37 10:34 WBC RBC Hgb Hct MCV MCH MCHC RDW Plt Count MPV Immature Gran % (Auto) Neut % (Auto) Lymph % (Auto) [place] % (Auto) Eos % (Auto) Baso % (Auto) Lymph # (Auto) [place] # (Auto) Eos # (Auto) Baso # (Auto) Abs Immat Gran (auto) Absolute Neuts (auto) Absolute Nucleated RBC Nucleated RBC % Sodium Potassium Chloride Carbon Dioxide Anion Gap BUN Creatinine Estim Creat Clear Calc Estimated GFR Glucose POC Capillary Glucose 92 76 91 Calcium Total Bilirubin AST ALT Alkaline Phosphatase Total Protein Albumin RPR HIV 1&2 Ab/P24 Ag 4thGn Blood Type Antibody S
[2024-02-14] MEDS: OXYTOCIN 30 UNITS/NS 500 ML 30 UNITS/500 ML BAG 125 UNITS IV CONT (15:42)
[2024-02-14] MEDS: ACETAMINOPHEN 325 MG TABLET 650 MG PO (17:20)
[2024-02-14] MEDS: WITCH HAZEL 40 PADS 1 PAD TOPICAL (17:20)
[2024-02-14] MEDS: BENZOCAINE 20% AER SPR (*SP) 56 GM CAN 1 SPRAY TOPICAL (17:20)
--- NOTE | 2024-02-14 17:40 | OBPPTRN ---
Patient transferred to post room #290 via wheelchair. Support person present. Oriented to unit, room, information board, rooming in, admission packet and security measures. Patient verbalizes understanding.
[2024-02-15 00:26] VITALS: BP 106/64; PULSE 88; RESP 18; TEMP 37.6; O2SAT 99
[2024-02-15 05:51] LABS: Hematocrit 32.6 % (37.0-47.0); Hemoglobin 10.6 g/dL (12.0-15.0)
[2024-02-15 05:54] LABS: Glucose Point of Care 130 mg/dl (65-105)
--- NOTE | 2024-02-15 07:43 | PM.OBPNVD ---
OB - PN: Subj Subjective Date/time seen: 02/15/24 07:25 Interval history: Post Day 1 from . Doing well. Urinating without difficulty. Denies passing any large clots. Denies dizziness with ambulating. Tolerating po food and fluids. Bonding with . Breast and formula feeding. Desires DC home. Patient comments: pain well controlled [place] baby status: doing well [place] feeding status: breast and bottle feeding OB - PN: Obj Data Labs 02/15/24 04:36 02/14/24 05:49 Labs: Laboratory Results - last 24 hr 02/14/24 02/14/24 02/14/24 05:49 08:01 09:29 Hgb Hct POC Capillary Glucose 144 H 98 RPR Non-reactive 02/14/24 02/14/24 02/14/24 10:34 11:37 14:33 Hgb Hct POC Capillary Glucose 91 76 92 RPR 02/15/24 02/15/24 04:36 05:50 Hgb 10.6 L Hct 32.6 L POC Capillary Glucose 130 H RPR OB - PN A/P Assessment and Plan (1) (normal spontaneous vaginal delivery): Code(s): O80 - Encounter for full-term uncomplicated delivery Status: Acute (2) Gestational diabetes: Qualifiers: Gestational diabetes mellitus control: insulin-controlled Trimester: third trimester Qualified Code(s): O24.414 - Gestational diabetes mellitus in , insulin controlled Code(s): O24.419 - Gestational diabetes mellitus in , unspecified control Status: Acute Assessment and Plan: plan 2 hour GTT at 6 weeks (3) Gestational hypertension: Qualifiers: Trimester: third trimester Qualified Code(s): O13.3 - Gestational [-induced] hypertension without significant proteinuria, third trimester Code(s): O13.9 - Gestational [-induced] hypertension without significant proteinuria, unspecified trimester Status: Acute Assessment and Plan: BPs WNL. No evidence of preeclampsia. (4) Intends to breastfeed: Status: Acute Plan day: 1 Plan: discharge home Time Spent With Patient Time: Total time spent is greater than 50% in coordination of care (as documented) at patient's floor/unit and/or counseling patient: Review of Systems Review of Systems: All systems reviewed & are unremarkable except as noted in HPI and below Exam Narrative: Alert and oriented. Mood is pleasant and cooperative. Perineum with minimal edema. Fundus firm and below umbilicus. Const: General: cooperative, healthy appearing, no acute distress and alert Orientation/consciousness: patient oriented x3 Limitations: no limitations Resp: Effort & Inspection: normal respiratory effort and able to speak in complete sentences Cardio: Rate: regular rate GI: Inspection: normal to inspection GI Palp: Yes Soft to palpation : General: Yes bladder normal to palpation External Female Exam: other (lochia WNL) Bimanual exam- vagina & uterus: bladder normal to palpation Other: Fundus firm and below U Skin: General skin exam: normal color and no rashes or lesions noted Neuro: General: patient oriented x3 and moves all extremities Cognition (Neuro): normal cognition Speech: normal speech Sensory Exam: normal sensation Extrem: General: normal to inspection and no calf tenderness Psych: Appearance: grossly normal Mental Status: mental status grossly normal Affect: normal affect Thought process: Normal thought process present
--- NOTE | 2024-02-15 07:45 | PM.OBPNVD ---
OB - PN: Subj Subjective Date/time seen: 02/15/24 07:45 Interval history: Post Day 1 from . Doing well. Urinating without difficulty. Denies passing any large clots. Denies dizziness with ambulating. Tolerating po food and fluids. Bonding with . Breast and formula feeding. Desires DC home. OB - PN: Obj Data Labs 02/15/24 04:36 02/14/24 05:49 Labs: Laboratory Results - last 24 hr 02/14/24 02/14/24 02/14/24 05:49 08:01 09:29 Hgb Hct POC Capillary Glucose 144 H 98 RPR Non-reactive 02/14/24 02/14/24 02/14/24 10:34 11:37 14:33 Hgb Hct POC Capillary Glucose 91 76 92 RPR 02/15/24 02/15/24 04:36 05:50 Hgb 10.6 L Hct 32.6 L POC Capillary Glucose 130 H RPR OB - PN A/P Plan Comments: When CNM entered room, pt asleep on her side with sleeping beside her. Pt awoke to voice. not latched at breast. Discussed safe sleep, never sleeping with especially with blankets, pillows, comforters, etc. Reviewed increased risk of accidental suffocation, SIDS. Recommend infant sleep on firm mattress at bedside. Time Spent With Patient Time: Total time spent is greater than 50% in coordination of care (as documented) at patient's floor/unit and/or counseling patient:
[2024-02-15 08:15] VITALS: BP 116/76; PULSE 86; RESP 16; TEMP 36.4; O2SAT 100
[2024-02-15] MEDS: MULTIVIT/MIN/PREN/FOL AC/IRON TABLET 1 TAB PO (08:29)
[2024-02-15 12:22] VITALS: BP 125/71; PULSE 98; RESP 18; TEMP 36.4; O2SAT 100
--- NOTE | 2024-02-15 13:00 | PC.NURSE ---
Breast pump provided due to maternal request. Instructions given on cleaning, care, usage, that there should be no pain, pumping schedule for milk production, collection, and storage of human milk. Patient was assessed for correct placement, flange size, to pump for comfort and nipple stretching/stimulation for adequate milk production every 3 hours (8 times in 24 hours) 1-2 times at night. Mothers nipples are 22mm, patient using a 24mm flange. Parents are encouraged to record the pumping schedule on the feeding sheet.?Mother voiced understanding of the education shared along with mom/baby guide and the pump measurement, flange fit handout for additional resource information. Reported to the Primary RN.
[2024-02-15] MEDS: ACETAMINOPHEN 325 MG TABLET 650 MG PO (14:36)
[2024-02-16 13:54] VITALS: BP 128/77; PULSE 94; RESP 18; TEMP 36.9; O2SAT 99
== END 2024-02-15 17:05 | disposition home or self-care (01) | DRG 807 ==
LOC: ANHLDR 17:00 → ANHOB2 17:45
PROVIDERS: Admitting Provider Obstetrics & Gynecology Gynecology; PCP Advanced Practice Midwife; Visit Provider Obstetrics & Gynecology Gynecology
DX: O99.284 Endocrine, nutritional and metabolic diseases complicating childbirth (principal); Z37.0 Single live birth; E28.2 Polycystic ovarian syndrome; O13.4 Gestational [pregnancy-induced] hypertension without significant proteinuria, complicating childbirth; O99.824 Streptococcus B carrier state complicating childbirth; O24.424 Gestational diabetes mellitus in childbirth, insulin controlled; O71.82 Other specified trauma to perineum and vulva; Z3A.39 39 weeks gestation of pregnancy; Z91.199 Patient's noncompliance with other medical treatment and regimen due to unspecified reason; Z87.891 Personal history of nicotine dependence; Z86.16 Personal history of COVID-19
CPT/HCPCS: 36415; 80053; 82948; 85014; 85018; 85025; 86592; 86703; 86850; 86900; 86901; A9270; G0432; J0690; J1815; J2590; J2795; J7120

== ENCOUNTER 2025-02-19 15:03 | Outpatient (CLI) | payer BC, SELFPAY ==
--- NOTE | ~2025-02-19 | US_ITS ---
EXAMINATION: US OB follow up DATE: 02/19/2025 15:29 INDICATION: Spotting during first trimester TECHNIQUE: Real-time ultrasound of the pelvis was performed. The interpreting radiologist was not present for the study. COMPARISON: None. FINDINGS: There is a single living fetus in variable presentation. The placenta is anterior with caudal margin 2.3 cm from the internal cervical os. heart rate is 165 beats per minute (bpm). The amniotic fluid volume is subjectively normal. The following biometric data were obtained: BPD: 3.7 cm -> 17 weeks 1 days Head circumference: 14.1 cm -> 17 weeks 3 days Abdominal circumference: 11.9 cm -> 17 weeks 4 days Femur length: 2.3 cm -> 17 weeks 0 days These measurements are concordant. Head circumference to abdominal circumference ratio: 1.18 (normal range 1.07-1.29). Estimated weight: 190 g (+/-) 28 g or 7 oz. (+/-) 1 oz. IMPRESSION: 1. Single living fetus in variable presentation with heart rate of 165 bpm. 2. Gestational age by ultrasound of 17 weeks 2 day(s) +/- 1 week(s) 1 day(s) with ultrasound estimated date of delivery (YONI) of 07/28/25. Please correlate with clinical information or earlier ultrasounds for most accurate YONI. 3. Anterior low-lying placenta with caudal margin 2.3 cm from the internal cervical os. Reviewed, dictated and finalized at location A. IMPRESSION: 1. Single living fetus in variable presentation with heart rate of 165 bp m. 2. Gestational age by ultrasound of 17 weeks 2 day(s) +/- 1 week(s) 1 day(s) wi th ultrasound estimated date of delivery (YONI) of 07/28/25. Please correlate wit h clinical information or earlier ultrasounds for most accurate YONI. 3. Anterior low-lying placenta with caudal margin 2.3 cm from the internal cerv ical os.
== END 2025-02-19 15:04 | disposition home or self-care (01) ==
LOC: MICIMG 15:03
PROVIDERS: PCP Advanced Practice Midwife; Visit Provider Obstetrics & Gynecology Gynecology
DX: O26.851 Spotting complicating pregnancy, first trimester (principal); Z3A.17 17 weeks gestation of pregnancy
CPT/HCPCS: 76816

== ENCOUNTER 2025-03-29 10:47 | Outpatient (CLI) | payer BC, SELFPAY ==
--- NOTE | ~2025-03-29 | US_ITS ---
EXAM/PROCEDURE: US OB /maternal detail HISTORY: Anatomy screen COMPARISON: February 19, 2025 TECHNIQUE: Anatomic survey FINDINGS: A single viable intrauterine gestation is present with heart rate of 153 bpm Presentation: Vertex Placenta: Anterior with no gross previa or abruption. The cervix is closed and measures approximately 2.5 cm. Amniotic fluid volume grossly within normal limits. Visualized anatomy including visualized portions of the lateral ventricles, cerebellum, spine, four-chamber view of the heart, diaphragm, stomach, kidneys, urinary bladder, three-vessel cord insertion, and extremities appear within normal limits. EGA by dates and ultrasound 22 weeks 5 days and 22 weeks 4 days EDC by dates and ultrasound July 28 and July 29, 2025 EFW: 500.23 g or 1 lb. 2 oz. EFW percentile 27.8 biometry is grossly concordant. IMPRESSION: anatomic survey with no gross anomaly identified. Dates are concordant. The cervix appears borderline shortened at 2.5 cm but is closed. Reviewed, dictated and finalized at location A. RITY TESTER IMPRESSION: anatomic survey with no gross anomaly identified. Dates are c oncordant. The cervix appears borderline shortened at 2.5 cm but is closed.
== END 2025-03-29 10:48 | disposition home or self-care (01) ==
LOC: MICIMG 10:47
PROVIDERS: PCP Advanced Practice Midwife; Visit Provider Obstetrics & Gynecology Gynecology
DX: Z36.9 Encounter for antenatal screening, unspecified (principal)
CPT/HCPCS: 76805